=== PATIENT | male | born 1980 | race Caucasian/White ===

== ENCOUNTER 2024-10-10 10:45 | Emergency (ER) | payer BC, SELFPAY ==
[2024-10-10 10:54] VITALS: BP 115/76
[2024-10-10 14:00] VITALS: BP 124/69
[2024-10-10] MEDS: ADACEL 0.5 ML IM (14:48)
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
== END 2024-10-10 15:49 | disposition home or self-care (01) ==
LOC: EMR 10:45
PROVIDERS: EMERGENCY PHYSICIAN Emergency Medicine; FAMILY PHYSICIAN Family Medicine
DX: S51.811A Laceration without foreign body of right forearm, initial encounter (principal); S61.412A Laceration without foreign body of left hand, initial encounter; S80.211A Abrasion, right knee, initial encounter; S60.511A Abrasion of right hand, initial encounter; V18.2XXA Unspecified pedal cyclist injured in noncollision transport accident in nontraffic accident, initial encounter; Z23 Encounter for immunization
CPT/HCPCS: 99283; 12002; 90471; 73110; 73130; 90715